=== PATIENT | male | born 1975 | race Caucasian/White ===

== ENCOUNTER 2017-04-21 18:19 | Emergency (ER) | payer BC ==
[2017-04-21 18:56] VITALS: BP 119/75
--- NOTE | 2017-04-21 19:08 | UC ---
Shoulder Pain HPI - HPI Summary HPI Summary: 42 presents with right shoulder pain for month with no trauma. - History of Current Complaint Chief Complaint: UCUpperExtremity Stated Complaint: RIGHT SHOULDER INJURY Time Seen by Provider: 04/21/17 19:08 Hx Obtained From: Patient Onset/Duration: Lasting Weeks Severity Initially: Moderate Severity Currently: Moderate Pain Scale Used: 0-10 Numeric - 6 Character: Sharp Aggravating Factor(s): Movement, Lifting, Flexion - Allergies/Home Medications Allergies/Adverse Reactions: Allergies Allergy/AdvReac Type Severity Reaction Status Date / Time No Known Allergies Allergy Verified 04/21/17 18:55 PMH/Surg Hx/FS Hx/Imm Hx Previously Healthy: Yes - Surgical History Surgical History: None - Social History Alcohol Use: Occasionally Substance Use Type: None Smoking Status (MU): Former Smoker Type: Cigarettes Amount Used/How Often: occasional Review of Systems Constitutional: Negative Skin: Negative Eyes: Negative ENT: Negative Respiratory: Negative Cardiovascular: Negative Gastrointestinal: Negative Genitourinary: Negative Motor: Negative Neurovascular: Negative Musculoskeletal: Other: - right shoulder pain Neurological: Negative Psychological: Negative All Other Systems Reviewed And Are Negative: Yes Physical Exam Triage Information Reviewed: Yes Vital Signs: Initial Vital Signs Temp 36.7 C 04/21/17 18:48 Pulse 66 04/21/17 18:48 Resp 18 04/21/17 18:48 BP 119/75 04/21/17 18:48 Vital Signs Reviewed: Yes Eye Exam: Normal ENT Exam: Normal Dental Exam: Normal Neck exam: Normal Neck: Positive: 1 Respiratory Exam: Normal Cardiovascular Exam: Normal Abdominal Exam: Normal Musculoskeletal: Positive: Other: - right shoulder pain Neurological Exam: Normal Psychological Exam: Normal Skin Exam: Normal Shoulder Course/Dx - Differential Dx/Diagnosis Provider Diagnoses: right shoulder pain/impingement Discharge - Discharge Plan Condition: Stable Disposition: HOME Prescriptions: Meloxicam(NF) [Mobic(NF)] 7.5 mg PO BID #30 tab Patient Education Materials: Rotator Cuff Injury (ED) Referrals: Costa Garcia MD [Medical Doctor] - Justo Valdivia MD [Primary Care Provider] - Lucas Tanner [Physical Therapist] -
--- NOTE | 2017-04-21 20:01 | RAD ---
INDICATION: Atraumatic right shoulder pain COMPARISON: None TECHNIQUE: Routine frontal, and Y views were obtained. FINDINGS: There is no acute bony change. The a.c. and glenohumeral joints are intact. Soft tissues are normal. IMPRESSION: NO ACUTE FINDINGS.
== END 2017-04-21 20:06 | disposition home or self-care (01) ==
LOC: UCCORT 18:19
DX: M25.511 Pain in right shoulder (principal); M25.811 Other specified joint disorders, right shoulder; Z87.891 Personal history of nicotine dependence
CPT/HCPCS: 99212; G0463

== ENCOUNTER 2018-06-05 18:19 | Emergency (ER) | payer BC ==
[2018-06-05 18:33] VITALS: BP 133/85
--- NOTE | 2018-06-05 18:53 | UC ---
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 States recent sexual partner may have been unfaithful. Denies other symptoms. " -rash is itchy and painful, in suprapubic area. no dc -no penile dc, no dysuria. no sores, no lesions. -he has had no other partners in past 2 yrs. - History of Current Complaint Chief Complaint: UCSTDScreening Stated Complaint: PERSONAL Time Seen by Provider: 06/05/18 18:40 Pain Intensity: 0 - Allergies/Home Medications Allergies/Adverse Reactions: Allergies Allergy/AdvReac Type Severity Reaction Status Date / Time No Known Allergies Allergy Verified 06/05/18 18:31 PMH/Surg Hx/FS Hx/Imm Hx Previously Healthy: Yes - Surgical History Surgical History: None - Family History Known Family History: Positive: Hypertension - Social History Alcohol Use: Occasionally Substance Use Type: None Smoking Status (MU): Light Every Day Tobacco Smoker Type: Cigarettes Amount Used/How Often: occasional Review of Systems All Other Systems Reviewed And Are Negative: Yes Constitutional: Positive: Negative Skin: Positive: Negative Eyes: Positive: Negative ENT: Positive: Negative Respiratory: Positive: Negative Cardiovascular: Positive: Negative Gastrointestinal: Positive: Negative Genitourinary: Positive: Negative Motor: Positive: Negative Neurovascular: Positive: Negative Musculoskeletal: Positive: Negative Neurological: Positive: Negative Psychological: Positive: Negative Is Patient Immunocompromised?: No Physical Exam Triage Information Reviewed: Yes Appearance: Well-Appearing, No Pain Distress, Well-Nourished Vital Signs: Initial Vital Signs Temp 97.9 F 06/05/18 18:29 Pulse 94 06/05/18 18:29 Resp 17 06/05/18 18:29 BP 133/85 06/05/18 18:29 Pulse Ox 100 06/05/18 18:29 Vital Signs Reviewed: Yes ENT Exam: Normal Neck exam: Normal Respiratory Exam: Normal Cardiovascular Exam: Normal Abdominal Exam: Normal Male Genital Exam: Positive: Normal Genitalia, Other - no lesions.. Negative: Bleeding, Hernia Mass, Urethral Discharge Musculoskeletal Exam: Normal Neurological Exam: Normal Psychological Exam: Normal Skin: Positive: Rashes - suprapubic area with ~ 4inches x 3 inches flat, dry, non blanching erythema. no dc. no streaks. cool to touch. Complaint Male Course/Dx - Course Course Of Treatment: -rash is c/w tinea cruris in suprapubic area. reassured that this is not STD. offered STD testing for HIV, hepatitis, RPR, urine GC/ chlam. he only chooses to have GC/chlam test. understands that the other STDs can be present and Asx. he does not wish to have these done. understands that he is not being treated prophylactically for GC/chlam. but if positive, he will be called to return here or PCP for treatment. he is very thankful and agreeable w/ this plan. - Differential Dx/Diagnosis Differential Diagnosis/HQI/PQRI: Other - tinea Provider Diagnosis: Tinea Discharge - Sign-Out/Discharge Documenting (check all that apply): Patient Departure All imaging exams completed and their final reports reviewed: No Studies - Discharge Plan Condition: Stable Disposition: HOME Prescriptions: Ketoconazole 2 % CREAM (NF) [Nizoral 2% CREAM (NF)] 1 applic TOPICAL TID #30 tube Patient Education Materials: [place] Itch (ED) Referrals: Justo Valdivia MD [Primary Care Provider] - If Needed Additional Instructions: You can call for the test results in a couple of days if you do not hear. If you change your mind about screening tests for syphilis, HIV or hepatitis you can ask your PCP to do so or come back here for testing. - Billing Disposition and Condition Condition: STABLE Disposition: Home
== END 2018-06-05 19:04 | disposition home or self-care (01) ==
LOC: UCCORT 18:19
DX: B35.9 Dermatophytosis, unspecified (principal); F17.210 Nicotine dependence, cigarettes, uncomplicated
CPT/HCPCS: 87491; 87591; 99212; G0463